=== PATIENT | female | born 1985 | race Caucasian/White ===

== ENCOUNTER 2017-04-27 01:27 | Emergency (ER) | payer SELFPAY ==
--- NOTE | 2017-04-27 01:48 | Emergency Room Report ---
History of Present Illness General Chief Complaint: To Be Triaged Present Illness HPI Patient checked in for chief complaint of body pain. She then changed her mind and left. She was never triaged. I did not see this patient. HAJA HEATH M.D. Apr 27, 2017 01:48
== END 2017-04-27 01:40 | disposition left against medical advice (07) ==
LOC: EMR 01:40
DX: R52 Pain, unspecified (principal); Z53.21 Procedure and treatment not carried out due to patient leaving prior to being seen by health care provider